=== PATIENT | female | born 1985 | race Two or more races ===

== ENCOUNTER 2020-06-29 17:29 | Emergency (ER) | payer OTHER ==
[~2020-06-29] VITALS: Ht 160 cm; Wt 63.5 kg
[2020-06-29] MEDS ORDERED: LEVO-T25 MCG PO (17:51)
[2020-06-29] MEDS ORDERED: ST. JOSEPH ASPI81 M2 PO (17:51)
[2020-06-29] MEDS ORDERED: OBSTETRIX ONE 38-1-2 (17:52)
== END 2020-06-29 21:40 | disposition home or self-care (01) ==
LOC: ER 17:29
DX: O20.0 Threatened abortion (principal); O26.891 Other specified pregnancy related conditions, first trimester; R10.2 Pelvic and perineal pain; Z34.01 Encounter for supervision of normal first pregnancy, first trimester